=== PATIENT | male | born 1985 | race African-American/Black ===

== ENCOUNTER 2024-07-26 21:13 | Emergency (ER) | payer OTHER ==
[~2024-07-26] VITALS: Ht 177.8 cm; Wt 99.8 kg
[2024-07-26] MEDS ORDERED: PSEUDOEPHEDRINE HCL 30 MG TAB PO ONE (21:30)
[2024-07-26] MEDS ORDERED: CYCLOBENZAPRINE HCL 10 MG TAB PO ONE (21:30)
[2024-07-26 21:44] LABS: BASOPHILS 0.5 % (0-2); EOSINOPHILS 0.1 % (0-6); HEMATOCRIT 44.1 % (35.0-50.0); LYMPHOCYTES 21.2 % (24-44); MCH 27.1 (27-36); MCHC 34.1 g/dl (30-36); MCV 79.5 fl (81-99); MONOCYTES 13.4 % (0-12); NEUTROPHILS 64.8 % (39-80); PLATELET COUNT 154 K/uL (140-440); RBC 5.54 M/ul (4.3-5.7); RDW 14.3 (10.5-15.0)
[2024-07-26 21:46] LABS: CORONAVIRUS COVID-19 AG NEGATIVE (NEGATIVE); INFLUENZA A AG POSITIVE (NEGATIVE); INFLUENZA B AG NEGATIVE (NEGATIVE)
[2024-07-26] MEDS ORDERED: CYCLOBENZAPRINE10 MG PO (21:57)
[2024-07-26] MEDS ORDERED: SUDAFED 12 HOU120 MG PO (21:57)
[2024-07-26] MEDS ORDERED: TAMIFLU75 MG PO (21:57)
[2024-07-26 21:58] LABS: ALBUMIN 3.7 g/dL (3.4-5.0); ALBUMIN/GLOBULIN RATIO 0.8 (1.1-2.4); ANION GAP 17.3 (7-21); BILIRUBIN, TOTAL 0.7 mg/dL (0.2-1.0); BUN/CREATININE RATIO 10.52 (6.0-28.6); CALCIUM 8.9 mg/dL (8.5-10.1); CREATININE, SERUM 1.33 mg/dL (0.70-1.30); MAGNESIUM 1.7 mg/dL (1.8-2.4); POTASSIUM 3.3 mmol/L (3.5-5.1); PROTEIN, TOTAL 8.3 g/dL (6.4-8.2)
[2024-07-26] MEDS ORDERED: MAGNESIUM OXIDE 400 MG TABLET PO ONE (22:15)
[2024-07-26] MEDS ORDERED: POTASSIUM CHLORIDE 10 MEQ TABCR PO ONE (22:15)
[2024-07-26 22:20] VITALS: BP 140/89
== END 2024-07-26 22:20 | disposition home or self-care (01) ==
LOC: ED 21:13
PROVIDERS: Family Medicine
DX: J10.1 Influenza due to other identified influenza virus with other respiratory manifestations (principal); E87.6 Hypokalemia
CPT/HCPCS: 36415; 71045; 80053; 83735; 85025; 99284-25; A9270